=== PATIENT | female | born 1945 | race Asian ===

== ENCOUNTER 2018-05-11 05:18 | Day surgery (SDC) | payer MEDICAID ==
[~2018-05-11] VITALS: Ht 157.5 cm; Wt 58.1 kg
[2018-05-11] MEDS ORDERED: LACTATED RINGERS 1,000 ML IV SCH (06:40)
[2018-05-11] MEDS ORDERED: BUPIVACAINE HCL/PF 0.5% (5MG/ML) 10ML ONE ×2 (07:01→07:35)
[2018-05-11] MEDS ORDERED: NORMAL SALINE 0.9% 10 ML SYR ONE (07:01)
[2018-05-11] MEDS ORDERED: LIDOCAINE HCL/PF 1% 10 MG/ML 5ML VIAL ONE ×3 (07:02→07:42)
[2018-05-11] MEDS ORDERED: BACITRACIN 50,000 UNITS/VIAL ONE (07:02)
[2018-05-11] MEDS ORDERED: ONDANSETRON HCL 4MG/2ML VIAL ONE (07:42)
[2018-05-11] MEDS ORDERED: FENTANYL CITRATE/PF 50MCG/ML 2ML VIAL ONE (07:42)
[2018-05-11] MEDS ORDERED: MIDAZOLAM HCL 2 MG/2 ML VIAL ONE (07:42)
[2018-05-11] MEDS ORDERED: SUCCINYLCHOLINE CHLORIDE 200MG/10ML VIAL IV ONE (07:42)
[2018-05-11] MEDS ORDERED: PROPOFOL 200MG/20ML VIAL IV ONE (07:42)
[2018-05-11] MEDS ORDERED: GLYCOPYRROLATE 0.2 MG/ML 2ML VIAL ONE (07:42)
[2018-05-11] MEDS ORDERED: METOCLOPRAMIDE HCL 10MG/2ML VIAL ONE (07:43)
[2018-05-11] MEDS ORDERED: ONDANSETRON HCL 4MG/2ML VIAL IV PRN (08:30)
[2018-05-11] MEDS ORDERED: HYDROMORPHONE HCL/PF 2MG/ML CPJ IV PRN (08:30)
[2018-05-11] MEDS ORDERED: MEPERIDINE HCL/PF 25MG/ML CPJ IV PRN (08:30)
[2018-05-11] MEDS ORDERED: SODIUM CHLORIDE 0.9% 1,000 ML IV ONE (09:28)
== END 2018-05-11 12:15 | disposition home or self-care (01) ==
LOC: OR 05:18
PROVIDERS: ATTEND Specialist
DX: K64.8 Other hemorrhoids (principal); K64.4 Residual hemorrhoidal skin tags; K62.0 Anal polyp; K21.9 Gastro-esophageal reflux disease without esophagitis; M19.90 Unspecified osteoarthritis, unspecified site; Z98.890 Other specified postprocedural states
CPT/HCPCS: 46260; 88304; A4216; J0330; J2250; J2405; J2765; J3010; J3490; J7120; J2704